=== PATIENT | female | born 1970 | race Caucasian/White ===

== ENCOUNTER 2019-09-08 14:39 | Emergency (ER) | payer BC, OTHER ==
[~2019-09-08] VITALS: Ht 160 cm; Wt 79.4 kg
[~2019-09-08 14:39] MED LIST: FLOMAX0.4 MG ORAL; IBUPROFEN600 MG ORAL; NORCO 5-325 TA1 EACH ORAL; ZOFRAN4 MG ORAL
[2019-09-08 15:00] VITALS: BP 112/78
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
[2019-09-08] MEDS ORDERED: Acetaminophen 500mg (ES) tab PO ONE (15:30)
--- NOTE | 2019-09-08 15:58 | NUR ---
ED Nurse Note: left to x ray
--- NOTE | 2019-09-08 16:05 | NUR ---
ED Nurse Note: Back from x ray
[2019-09-08] MEDS ORDERED: LIDODERM700 M1 TOPIC (16:39)
[2019-09-08] MEDS ORDERED: ROBAXIN-750750 MG PO (16:39)
[2019-09-08] MEDS ORDERED: ACETAMINOPHEN-1 EAC1 ORAL (16:39)
[2019-09-08 16:43] VITALS: BP 115/73
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
--- NOTE | 2019-09-09 18:52 | Diagnostic Imaging Report ---
Indication: Back pain Technique: 3 views of the lumbar spine Comparison: None Findings: Bony alignment is normal. Vertebral body heights are preserved. The disc spaces are preserved Impression: Negative
== END 2019-09-08 16:43 | disposition home or self-care (01) ==
LOC: EMR 16:35
DX: M54.5 Low back pain (principal); M54.2 Cervicalgia; E78.00 Pure hypercholesterolemia, unspecified; V43.52XA Car driver injured in collision with other type car in traffic accident, initial encounter; Y92.410 Unspecified street and highway as the place of occurrence of the external cause; Z88.0 Allergy status to penicillin; Z88.2 Allergy status to sulfonamides
CPT/HCPCS: 72020; 99283